=== PATIENT | male | born 1950 | race Two or more races ===

== ENCOUNTER 2024-05-15 04:56 | Day surgery (SDC) | payer OTHER ==
[2024-05-06 12:37] VITALS: BMI 48.6
[2024-05-15 10:15] VITALS: BP 121/81; PULSE 66; RESP 18; TEMP 98.6
== END 2024-05-15 10:16 | disposition home or self-care (01) ==
LOC: JASU-ENDO 04:56
PROVIDERS: ATTEND Student in an Organized Health Care Education/Training Program
PROC: 0DB68ZX Excision of Stomach, Via Natural or Artificial Opening Endoscopic, Diagnostic (ICD-10-PCS; 2024-05-15)
PROC: 0DBH8ZX Excision of Cecum, Via Natural or Artificial Opening Endoscopic, Diagnostic (ICD-10-PCS; principal; 2024-05-15 09:00)
DX: Z12.11 Encounter for screening for malignant neoplasm of colon (principal); K63.5 Polyp of colon; K29.80 Duodenitis without bleeding; K29.50 Unspecified chronic gastritis without bleeding; K64.8 Other hemorrhoids
CPT/HCPCS: 88305-TC; 88342-TC